=== PATIENT | male | born 1950 | race Caucasian/White ===

== ENCOUNTER 2016-10-29 12:40 | Emergency (ER) | payer OTHER, MEDICARE ==
[~2016-10-29] VITALS: Ht 157.5 cm; Wt 48.8 kg
[2016-10-29 12:48] VITALS: BP 126/73; PULSE 70; RESP 16; TEMP 98.5; O2SAT 99
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
[2016-10-29] MEDS ORDERED: CYCL5TAB PO (13:45)
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
== END 2016-10-29 14:20 | disposition home or self-care (01) ==
LOC: PHEFT 12:40
DX: S16.1XXA Strain of muscle, fascia and tendon at neck level, initial encounter (principal); V89.2XXA Person injured in unspecified motor-vehicle accident, traffic, initial encounter; V49.40XA Driver injured in collision with unspecified motor vehicles in traffic accident, initial encounter; Y93.89 Activity, other specified; Y92.410 Unspecified street and highway as the place of occurrence of the external cause
CPT/HCPCS: 73502; 99283